=== PATIENT | female | born 1950 | race Caucasian/White ===

== ENCOUNTER 2025-04-08 16:04 | Emergency (ER) | payer MEDICARE, BC ==
[~2025-04-08] VITALS: Ht 172.7 cm; Wt 89.8 kg
[2025-04-08] MEDS ORDERED: ONDA4TAB11 PO (18:09)
[2025-04-08] MEDS ORDERED: HYDR-4303 PO (18:09)
[2025-04-08 18:27] VITALS: BP 151/95; TEMP 98.4; O2SAT 99
== END 2025-04-08 18:27 | disposition home or self-care (01) ==
LOC: ER 16:08
DX: S02.2XXA Fracture of nasal bones, initial encounter for closed fracture (principal); S00.83XA Contusion of other part of head, initial encounter; E03.9 Hypothyroidism, unspecified; Z85.3 Personal history of malignant neoplasm of breast; Z88.0 Allergy status to penicillin; Z88.1 Allergy status to other antibiotic agents; Z90.12 Acquired absence of left breast and nipple; W01.0XXA Fall on same level from slipping, tripping and stumbling without subsequent striking against object, initial encounter; Y93.01 Activity, walking, marching and hiking; Y92.480 Sidewalk as the place of occurrence of the external cause; Y99.8 Other external cause status
CPT/HCPCS: 70450-TC; 70486-TC